=== PATIENT | female | born 1950 | race Caucasian/White ===

== ENCOUNTER 2017-03-21 14:21 | Emergency (ER) | payer OTHER ==
[~2017-03-21] VITALS: Ht 162.6 cm; Wt 93.5 kg
[2017-03-21 14:42] VITALS: BP 143/88; PULSE 86; RESP 16; TEMP 98.1; O2SAT 95
[2017-03-21] MEDS ORDERED: LATANOPROST (14:57)
[2017-03-21] MEDS ORDERED: MEDR4PAK PO (14:57)
[2017-03-21] MEDS ORDERED: TETANUS/DIPHTHERIA TOXOID ADULT 0.5 ML VIAL IM ONE (15:30)
[2017-03-21] MEDS ORDERED: LIDOCAINE 1%/EPINEPHrine 1:100,000 SOLN 20 ML VIAL INFIL ONE (15:30)
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
--- NOTE | 2017-03-21 16:11 | RADHPO ---
EXAM DATE/TIME: 03/21/2017 15:53 [facility] COMPARISON: No previous studies available for comparison. INDICATIONS : Fall. Laceration to the forehead. RADIATION DOSE: 54.64 CTDIvol (mGy) MEDICAL HISTORY : None SURGICAL HISTORY : Fusion, cervical. ENCOUNTER: Initial ACUITY: 1 day PAIN SCALE: 3/10 LOCATION: cranial TECHNIQUE: Multiple contiguous axial images were obtained of the head. Using automated exposure control and adj ustment of the mA and/or kV according to patient size, radiation dose was kept as low as reasonably a chievable to obtain optimal diagnostic quality images. FINDINGS: CEREBRUM: The ventricles are normal for age. No evidence of midline shift, mass lesion, hemorrhage or acute in farction. No extra-axial fluid collections are seen. POSTERIOR FOSSA: The cerebellum and brainstem are intact. The 4th ventricle is midline. The cerebellopontine angle i s unremarkable. EXTRACRANIAL: The visualized portion of the orbits is intact. There is mild soft tissue swelling of the left fronta l bone. SKULL: The calvaria is intact. No evidence of skull fracture. CONCLUSION: Mild soft tissue swelling over the left frontal bone with no evidence of fracture or hemorrhage. Michael Villagran MD on March 21, 2017 at 16:08 Board Certified Radiologist. This report was verified electronically.
== END 2017-03-21 16:41 | disposition home or self-care (01) ==
LOC: PHEFT 14:21
DX: S01.81XA Laceration without foreign body of other part of head, initial encounter (principal); H40.9 Unspecified glaucoma; W10.1XXA Fall (on)(from) sidewalk curb, initial encounter; Z23 Encounter for immunization; Y93.01 Activity, walking, marching and hiking; Y92.89 Other specified places as the place of occurrence of the external cause; Y99.8 Other external cause status
CPT/HCPCS: 12011; 70450; 90471; 90714